=== PATIENT | female | born 1965 | race Caucasian/White ===

== ENCOUNTER → 2019-02-12 | Outpatient (CLI) | payer OTHER ==
[~2019-02-12] MED LIST: IBUP80TA PO; PERCOCET PO; RANI1TAB6 PO; iron OR
--- NOTE | 2019-02-12 13:20 | REP ---
REASON: Hip and back pain. COMPARISON: None. FINDINGS: The hip joint space is symmetric and relatively well maintained. T here is no acute or destructive osseous lesion. Electronically Signed by Gunnar Moore DO 02/12/2019 03:25 P
--- NOTE | 2019-02-12 13:50 | REP ---
REASON: Low back pain with right lower extremity radicular symptoms. COMPARISON: None. There is incidental L5 spina bifida occulta. The pedicles are intact bilaterally. Vertebral body height and alignment is within normal limits. There is posterior disc space narrowing at every level. There is minimal anterior lipping seen at L3-4. IMPRESSION: Chronic changes as described above. Electronically Signed by Gunnar Moore DO 02/12/2019 03:26 P
== END ==
LOC: M LRY 12:16
PROVIDERS: ATTEND Physician Assistant
DX: Q05.7 Lumbar spina bifida without hydrocephalus (principal); M48.07 Spinal stenosis, lumbosacral region; M54.5 Low back pain

== ENCOUNTER → 2019-06-18 | Outpatient (CLI) | payer OTHER ==
[~2019-06-18] MED LIST changes: +RANI-356 PO; -RANI1TAB6 PO
--- NOTE | 2019-06-18 15:40 | REPMRS ---
Patient History The patient states she has not had a clinical breast exam in over a year. Patient is postmenopausal. No known family history of cancer. Reductions of both breasts, 2002. Took hormonal contraceptives for 18 years. The [facility] lifetime risk for breast cancer is 7.2%. Digital Woman Screen Mammo: June 18, 2019 - Exam #: [id number] Bilateral CC and MLO view(s) were taken. Technologist: Jasmyn Bartholomew, Technologist Prior study comparison: November 10, 2015, digital bilateral screening mammo, performed at [facility]. 2009, digital bilateral screening mammo performed at [facility]. FINDINGS: There are scattered fibroglandular densities. There has been no change in the appearance of the mammogram from the prior studies. There is a mild amount of residual fibroglandular tissue which is fairly symmetric. There is no interval development of dominant mass, architectural distortion, or clustered microcalcification suggestive of malignancy. Assessment: BI-RADS/ACR category 1 mammogram. Negative Mammogram. Recommendation Routine screening mammogram in 1 year (for women over age 40). This mammogram was interpreted with the aid of an FDA-approved computer-aided dectection system. Electronically Signed By: Hank Munguia MD 06/18/19 [id number]
== END ==
LOC: M WHC 14:31
PROVIDERS: ATTEND Family Medicine
DX: Z12.31 Encounter for screening mammogram for malignant neoplasm of breast (principal); Z78.0 Asymptomatic menopausal state; Z92.0 Personal history of contraception

== ENCOUNTER → 2019-12-16 | Outpatient (CLI) | payer OTHER ==
[~2019-12-16] MED LIST changes: +GASTROGRAFIN SOLUTION 30ML (Q9963) As Ordered ONE; +ISOVUE-370 76% 100ML VIAL (Q9967) As Ordered ONE; -RANI-356 PO; +RANI-397 PO
--- NOTE | 2019-12-16 15:54 | REP ---
CT of the abdomen and pelvis with IV and bowel contrast for abdominal pain radiating from the umbilicus to the right lower quadrant. No fever, chills, nausea, vomiting, hematuria or anorexia. There are no comparison studies. The visualized lung carter are unremarkable. The hepatic parenchyma is homogeneous but diffusely less dense than the spleen suggestive of hepato steatosis. There are no hepatic masses. The gallbladder surgically absent. The pancreas and spleen are normal size, homogeneous and unremarkable. The adrenals are unremarkable. There are no renal masses or cysts. There is no hydronephrosis. No renal calculi are identified. There is no perinephric stranding. The kidneys are unremarkable. The abdominal aorta is unremarkable. There is no periaortic adenopathy or mass. There is no bowel distension or obstruction. There is no ascites. Pelvis: The appendix cannot be identified as a distinct structure. It is in by superimposed bowel loops. However, there is no pericecal inflammation or abscess. The terminal ileum is unremarkable. The bladder is unremarkable. There is a hysterectomy. Vaginal cuff and adnexa are unremarkable. There is no ascites. There is no pelvic adenopathy. The pelvic bowel loops demonstrate occasional diverticula in the distal descending colon and sigmoid colon, however, there is no CT evidence of diverticulitis. There is an unusual soft tissue nodular density measuring 17 mm just lateral to the left quadratus lumborum on image 76 of uncertain significance. This could represent a congenital muscular artifact. There is no associated edema or inflammation. There is no concomitant finding on the right. As a precaution, I would recommend follow-up CT in this area approximately 3-6 months unless the patient has prior studies performed elsewhere that could be obtained for comparison. Diagnostic considerations at this time. Heart congenital variant versus unusual neoplasm. Impression: Hepato steatosis. The appendix cannot be identified as a distinct structure, however, there is no pericecal inflammation or abscess. The terminal ileum has an unremarkable appearance by CT. The bowel and mesentery are otherwise unremarkable. There is no ascites or adenopathy. No bowel distension or obstruction. No CT evidence of colitis. Unusual soft tissue nodular density in the left retroperitoneum lateral to the left quadratus lumborum muscle measuring 17 mm as described in detail above. This could be a congenital variant versus neoplasm. I would recommend follow-up CT with attention to this area in approximately 3-6 months. If more immediate imaging as deemed clinically indicated I would recommend MRI. Electronically Signed by Hank Owens MD 12/16/2019 03:45 P
== END ==
LOC: M RAD 12:25
PROVIDERS: ATTEND Family Medicine
DX: R10.31 Right lower quadrant pain (principal)
CPT/HCPCS: 74177; Q9963; Q9967

== ENCOUNTER → 2020-03-12 | Outpatient (CLI) | payer OTHER ==
[~2020-03-12] MED LIST changes: -GASTROGRAFIN SOLUTION 30ML (Q9963) As Ordered ONE; -ISOVUE-370 76% 100ML VIAL (Q9967) As Ordered ONE; +PROHANCE 279.3MG/ML 15ML VIAL As Ordered ONE; +PROHANCE 279.3MG/ML 5ML VIAL As Ordered ONE
--- NOTE | 2020-03-12 18:20 | REPVR ---
PROCEDURE INFORMATION: Exam: MR Abdomen Without and With Contrast Exam date and time: 03/12/2020 5:24 PM Age: 54 years old Clinical indication: Abnormal findings; Mass, lump, or swelling; Abdomen; Luq; Patient HX: Small mass seen on CT left posterior abdominal wall at level of kidney; Additional info: Incidenital lesion of left retroperitoneal TECHNIQUE: Imaging protocol: MR of the abdomen without and with intravenous contrast. Contrast material: PROHANCE; Contrast volume: 20 ml; Contrast route: IV; COMPARISON: No relevant prior studies available. FINDINGS: Liver: There is hepatic steatosis. No focal hepatic lesion. Gallbladder and bile ducts: Status post cholecystectomy. Bile ducts are not dilated. Pancreas: The pancreas is normal. Incompletely visualized. Spleen: The spleen is normal. Adrenals: The adrenal glands are normal. Incompletely visualized. Kidneys and ureters: The kidneys are normal.No hydronephrosis. Stomach and bowel: Visualized stomach and intestines are unremarkable. Intraperitoneal space: No free fluid. Arteries: No abdominal aortic aneurysm. Reproductive: There is a mass to the left of the quadratus lumborum. This is hyperintense on T2 weighted images as seen on series 501, frame 0 11. It is isointense on T1 weighted images. There is homogeneous extensive enhancement of this mass. It measures 17 by 12 by 16 mm. Bones/joints: See "Reproductive" finding. Soft tissues: See "Reproductive" finding. IMPRESSION: 17 x 12 x 16 mm mass in the retroperitoneum on the left. It enhances on postcontrast images. The appearance is nonspecific. This could represent a fibroma. Malignancies such as sarcoma cannot be excluded. This lesion is stable in size compared to the prior scan. Stability in size favors a benign lesion. Consider PET scan or continued short-term follow-up in 3 months. Electronically signed by: Stanley Tobias On 03/12/2020 18:20:01 PM
== END ==
LOC: M RAD 16:25
PROVIDERS: ATTEND Family Medicine
DX: R10.30 Lower abdominal pain, unspecified (principal); K76.0 Fatty (change of) liver, not elsewhere classified; Z90.49 Acquired absence of other specified parts of digestive tract; R93.5 Abnormal findings on diagnostic imaging of other abdominal regions, including retroperitoneum
CPT/HCPCS: 74183; A9576

== ENCOUNTER → 2021-10-17 | Outpatient (CLI) | payer OTHER ==
[~2021-10-17] MED LIST changes: -PROHANCE 279.3MG/ML 15ML VIAL As Ordered ONE; -PROHANCE 279.3MG/ML 5ML VIAL As Ordered ONE
[2021-10-17 16:01] LABS: CREATININE, URINE 87.2 MG/DL; MALB URINE SIEMENS 9.4 MG/L; MAU/CREAT RATIO 10.7 MCG/MG (0.0-30.0)
[2021-10-17 16:05] LABS: CHOLESTEROL RISK RATIO 5.288 (<5); FREE T4 0.87 NG/DL (0.76-1.46); THYROID STIMULATING HORMONE 1.91 uIU/ML (0.358-3.740)
== END ==
LOC: M PLALAB 13:56
PROVIDERS: ATTEND Nurse Practitioner Family
DX: I10 Essential (primary) hypertension (principal)

== ENCOUNTER → 2022-05-16 | Outpatient (CLI) | payer OTHER | LOC: M WHC 13:17 | PROVIDERS: ATTEND Student in an Organized Health Care Education/Training Program | DX: N63.12 Unspecified lump in the right breast, upper inner quadrant (principal) | CPT/HCPCS: 76642; 77065; G0279 ==

== ENCOUNTER → 2022-11-02 | Outpatient (CLI) | payer OTHER | LOC: M SOG 08:05 | PROVIDERS: ATTEND Orthopaedic Surgery | DX: M25.562 Pain in left knee (principal) ==

== ENCOUNTER → 2022-11-20 | Outpatient (CLI) | payer OTHER ==
[2022-11-20 10:14] LABS: BASO # 0.1 10^3/uL (0.0-0.2); BASO % 0.9 % (0.0-1.0); EOS # 0.2 10^3/uL (0.0-0.5); EOS % 2.7 % (0.0-3.0); HEMATOCRIT 39.1 % (36.0-47.0); HEMOGLOBIN 12.6 g/dl (12.0-15.5); LYMPH # 2.8 10^3/uL (1.5-5.0); LYMPH % 39.6 % (24.0-44.0); MEAN CORPUSCULAR HGB CONC 32.2 g/dl (32.0-36.5); MEAN CORPUSCULAR VOLUME 93.1 fl (80.0-96.0); MONO # 0.4 10^3/uL (0.0-0.8); MONO % 5.7 % (2.0-8.0); NEUTROPHILS # 3.6 10^3/uL (1.5-8.5); NEUTROPHILS % 50.7 % (36.0-66.0); PLATELET COUNT, AUTOMATED 242 10^3/uL (150-450)
[2022-11-20 10:45] LABS: ALBUMIN 3.9 G/DL (3.2-5.2); ALKALINE PHOSPHATASE 53 U/L (46-116); ALT/SGPT 31 U/L (7.0-40); AST/SGOT < 8 U/L (<34); BILIRUBIN,TOTAL 0.3 MG/DL (0.3-1.2); BLOOD UREA NITROGEN 16 MG/DL (9-23); CARBON DIOXIDE LEVEL 26 MMOL/L (20-31); CHLORIDE LEVEL 112 MMOL/L (98-107); CHOLESTEROL LEVEL 211 MG/DL (<200); CHOLESTEROL RISK RATIO 4.27 (<5); CREATININE FOR GFR 0.54 MG/DL (0.55-1.30); GLOMERULAR FILTRATION RATE > 60.0 (>51); GLUCOSE, FASTING 102 MG/DL (60-100); HDL CHOLESTEROL 49.3 MG/DL (>40); LDL CHOLESTEROL 125.1 MG/DL (<100); NON-HDL-C 162 MG/DL; POTASSIUM SERUM 4.7 MMOL/L (3.5-5.1); SODIUM LEVEL 141 MMOL/L (136-145); TOTAL PROTEIN 6.7 G/DL (5.7-8.2); TRIGLYCERIDES LEVEL 183 MG/DL (<150)
[2022-11-20 10:46] LABS: THYROID STIMULATING HORMONE 2.675 uIU/ML (0.55-4.78)
[2022-11-20 10:47] LABS: FREE T4 0.99 NG/DL (0.89-1.76)
== END ==
LOC: M WUC 08:25
PROVIDERS: ATTEND Student in an Organized Health Care Education/Training Program
DX: Z00.00 Encounter for general adult medical examination without abnormal findings (principal)

== ENCOUNTER → 2023-11-26 | Outpatient (CLI) | payer OTHER ==
[2023-11-26 16:25] LABS: BASO # 0.1 10^3/uL (0.0-0.2); BASO % 0.6 % (0.0-1.0); EOS # 0.1 10^3/uL (0.0-0.5); EOS % 1.2 % (0.0-3.0); HEMATOCRIT 38.9 % (36.0-47.0); HEMOGLOBIN 13.1 g/dl (12.0-15.5); LYMPH % 39.6 % (24.0-44.0); MEAN CORPUSCULAR HEMOGLOBIN 30.4 pg (27.0-33.0); MEAN CORPUSCULAR HGB CONC 33.7 g/dl (32.0-36.5); MEAN CORPUSCULAR VOLUME 90.3 fl (80.0-96.0); MONO # 0.4 10^3/uL (0.0-0.8); MONO % 4.3 % (2.0-8.0); NEUTROPHILS # 5.5 10^3/uL (1.5-8.5); NEUTROPHILS % 53.9 % (36.0-66.0); PLATELET COUNT, AUTOMATED 298 10^3/uL (150-450); RED BLOOD COUNT 4.31 10^6/uL (4.00-5.40); WHITE BLOOD COUNT 10.1 10^3/uL (4.0-10.0)
[2023-11-26 16:34] LABS: INR 0.96; PROTHROMBIN TIME 12.5 SECONDS (12.5-14.5)
[2023-11-26 16:38] LABS: ALBUMIN 4.1 G/DL (3.2-5.2); ALKALINE PHOSPHATASE 50 U/L (46-116); ALT/SGPT 43 U/L (7.0-40); AST/SGOT 16 U/L (<34); BILIRUBIN,TOTAL 0.2 MG/DL (0.3-1.2); BLOOD UREA NITROGEN 17 MG/DL (9-23); CALCIUM LEVEL 9.7 MG/DL (8.5-10.1); CARBON DIOXIDE LEVEL 28 MMOL/L (20-31); CHLORIDE LEVEL 105 MMOL/L (98-107); CREATININE FOR GFR 0.73 MG/DL (0.55-1.30); GLOMERULAR FILTRATION RATE > 60.0 (>51); GLUCOSE, FASTING 96 MG/DL (60-100); IRON (FE) 94 UG/DL (50-170); PERCENT SATURATION 28.7 % (13.2-45.0); SODIUM LEVEL 140 MMOL/L (136-145); TOTAL IRON BINDING CAPACITY 328 UG/DL (250-425); TOTAL PROTEIN 7.3 G/DL (5.7-8.2)
== END ==
LOC: M WUC 14:21
PROVIDERS: ATTEND Orthopaedic Surgery
DX: Z01.818 Encounter for other preprocedural examination (principal); M25.562 Pain in left knee; M17.12 Unilateral primary osteoarthritis, left knee

== ENCOUNTER → 2023-12-25 | Outpatient (REF) | payer OTHER ==
[2023-12-25 12:12] LABS: BASO # 0.1 10^3/uL (0.0-0.2); BASO % 0.8 % (0.0-1.0); EOS # 0.1 10^3/uL (0.0-0.5); EOS % 1.6 % (0.0-3.0); HEMATOCRIT 39.2 % (36.0-47.0); HEMOGLOBIN 12.9 g/dl (12.0-15.5); LYMPH # 2.7 10^3/uL (1.5-5.0); LYMPH % 36.3 % (24.0-44.0); MEAN CORPUSCULAR HEMOGLOBIN 30.8 pg (27.0-33.0); MEAN CORPUSCULAR HGB CONC 32.9 g/dl (32.0-36.5); MEAN CORPUSCULAR VOLUME 93.6 fl (80.0-96.0); MONO # 0.4 10^3/uL (0.0-0.8); MONO % 5.2 % (2.0-8.0); NEUTROPHILS # 4.1 10^3/uL (1.5-8.5); NEUTROPHILS % 55.8 % (36.0-66.0); PLATELET COUNT, AUTOMATED 272 10^3/uL (150-450); RED BLOOD COUNT 4.19 10^6/uL (4.00-5.40); WHITE BLOOD COUNT 7.4 10^3/uL (4.0-10.0)
[2023-12-25 12:37] LABS: FREE T4 1.11 NG/DL (0.89-1.76)
[2023-12-25 12:38] LABS: ALBUMIN 4.2 G/DL (3.2-5.2); ALKALINE PHOSPHATASE 47 U/L (46-116); ALT/SGPT 64 U/L (7.0-40); AST/SGOT 23 U/L (<34); BILIRUBIN,TOTAL 0.4 MG/DL (0.3-1.2); BLOOD UREA NITROGEN 11 MG/DL (9-23); CALCIUM LEVEL 9.3 MG/DL (8.5-10.1); CARBON DIOXIDE LEVEL 31 MMOL/L (20-31); CHLORIDE LEVEL 107 MMOL/L (98-107); CHOLESTEROL LEVEL 221 MG/DL (<200); CHOLESTEROL RISK RATIO 5.06 (<5); CREATININE FOR GFR 0.47 MG/DL (0.55-1.30); GLOMERULAR FILTRATION RATE > 60.0 (>51); GLUCOSE, FASTING 100 MG/DL (60-100); HDL CHOLESTEROL 43.6 MG/DL (>40); LDL CHOLESTEROL 139.4 MG/DL (<100); NON-HDL-C 177.4 MG/DL; POTASSIUM SERUM 4.4 MMOL/L (3.5-5.1); SODIUM LEVEL 141 MMOL/L (136-145); TOTAL 25(OH) VITAMIN D 6.5 NG/ML (20.0-100.0); TOTAL PROTEIN 7.3 G/DL (5.7-8.2); TRIGLYCERIDES LEVEL 190 MG/DL (<150)
== END ==
LOC: M LABWUC 11:33
PROVIDERS: ATTEND Physician Assistant
DX: Z00.00 Encounter for general adult medical examination without abnormal findings (principal); I10 Essential (primary) hypertension

== ENCOUNTER → 2024-05-05 | Outpatient (CLI) | payer OTHER | LOC: M WHC 10:34 | PROVIDERS: ATTEND Physician Assistant | DX: Z12.31 Encounter for screening mammogram for malignant neoplasm of breast (principal) ==

== ENCOUNTER 2024-08-16 07:58 | Emergency (ER) | payer OTHER ==
[2024-08-16] MEDS ORDERED: LISI10TA22 (08:07)
[2024-08-16 08:55] LABS: BASO % 0.3 % (0.0-1.0); EOS # 0.1 10^3/uL (0.0-0.5); EOS % 0.8 % (0.0-3.0); HEMATOCRIT 40.4 % (36.0-47.0); HEMOGLOBIN 13.2 g/dl (12.0-15.5); LYMPH # 1.8 10^3/uL (1.5-5.0); MEAN CORPUSCULAR HGB CONC 32.7 g/dl (32.0-36.5); MEAN CORPUSCULAR VOLUME 91.8 fl (80.0-96.0); MONO # 0.7 10^3/uL (0.0-0.8); MONO % 5.4 % (2.0-8.0); NEUTROPHILS # 10.2 10^3/uL (1.5-8.5); NEUTROPHILS % 79.1 % (36.0-66.0); PLATELET COUNT, AUTOMATED 249 10^3/uL (150-450); WHITE BLOOD COUNT 12.9 10^3/uL (4.0-10.0)
[2024-08-16 09:17] LABS: ALBUMIN 4.2 G/DL (3.2-5.2); BILIRUBIN,DIRECT 0.2 MG/DL (<0.4); BILIRUBIN,TOTAL 0.6 MG/DL (0.3-1.2); TOTAL PROTEIN 7.6 G/DL (5.7-8.2)
[2024-08-16] MEDS: KETOROLAC 30 MG/ML 1ML VIAL IV ONE (09:29)
[2024-08-16] MEDS ORDERED: ISOVUE-370 76% 100ML VIAL As Ordered ONE (09:33)
[2024-08-16 10:11] VITALS: TEMP 98.3
[2024-08-16 13:01] VITALS: BP 141/80; O2SAT 98
[2024-08-16] MEDS: CIPROFLOXACIN 500MG TABLET PO ONE (13:04)
[2024-08-16] MEDS: metroNIDAZOLE (FLAGYL) 500MG TABLET PO ONE (13:05)
[2024-08-16] MEDS ORDERED: METR-265 PO (13:10)
[2024-08-16] MEDS ORDERED: CIPR-249 PO (13:10)
== END 2024-08-16 13:31 | disposition home or self-care (01) ==
LOC: M ED 07:58
DX: K57.30 Diverticulosis of large intestine without perforation or abscess without bleeding (principal); R19.04 Left lower quadrant abdominal swelling, mass and lump; K42.9 Umbilical hernia without obstruction or gangrene; I70.0 Atherosclerosis of aorta; I10 Essential (primary) hypertension; K76.0 Fatty (change of) liver, not elsewhere classified; Z90.49 Acquired absence of other specified parts of digestive tract; Z79.811 Long term (current) use of aromatase inhibitors; Z79.2 Long term (current) use of antibiotics; Z79.899 Other long term (current) drug therapy
CPT/HCPCS: 74177; 80047; 80076; 83690; 85025; 96374; 99284; J1885; Q9967

== ENCOUNTER 2024-11-19 09:01 | Day surgery (SDC) | payer OTHER ==
[~2024-11-19] VITALS: Ht 167.6 cm; Wt 99.3 kg
[~2024-11-19 09:01] MED LIST changes: +CIPR-249 PO; +ERGO500029 PO; +LISI10TA22 PO; +METR-265 PO
[2024-11-19] MEDS ORDERED: propofoL 200 MG/20 ML VIAL As Ordered ONE (09:33)
[2024-11-19] MEDS ORDERED: LIDOCAINE 2% 100MG/5ML SDV (FOR ANES.) As Ordered ONE (09:33)
[2024-11-19 10:54] VITALS: TEMP 97
[2024-11-19 11:11] VITALS: BP 167/87; O2SAT 96
== END 2024-11-19 11:16 | disposition home or self-care (01) ==
LOC: M OPP 09:01
PROVIDERS: ATTEND Surgery
DX: K57.30 Diverticulosis of large intestine without perforation or abscess without bleeding (principal); K64.0 First degree hemorrhoids; Z79.899 Other long term (current) drug therapy

== ENCOUNTER → 2025-04-09 | Outpatient (CLI) | payer OTHER ==
[2025-04-09 14:52] LABS: BASO # 0.0 10^3/uL (0.0-0.2); BASO % 0.7 % (0.0-1.0); EOS # 0.2 10^3/uL (0.0-0.5); EOS % 2.6 % (0.0-3.0); LYMPH # 1.8 10^3/uL (1.5-5.0); LYMPH % 31.0 % (24.0-44.0); MONO # 0.3 10^3/uL (0.0-0.8); MONO % 5.8 % (2.0-8.0); NEUTROPHILS # 3.5 10^3/uL (1.5-8.5); NEUTROPHILS % 59.7 % (36.0-66.0); PLATELET COUNT, AUTOMATED 245 10^3/uL (150-450)
[2025-04-09 15:00] LABS: TOTAL 25(OH) VITAMIN D 35.5 NG/ML (20.0-100.0)
[2025-04-09 15:01] LABS: ALT/SGPT 35 U/L (7.0-40); AST/SGOT 20 U/L (<34); CALCIUM LEVEL 9.3 MG/DL (8.5-10.1); CARBON DIOXIDE LEVEL 23 MMOL/L (20-31); CHLORIDE LEVEL 107 MMOL/L (98-107); CHOLESTEROL LEVEL 219 MG/DL (<200); CHOLESTEROL RISK RATIO 4.91 (<5); CREATININE FOR GFR 0.58 MG/DL (0.55-1.30); GLOMERULAR FILTRATION RATE > 90.0 (>51); IRON (FE) 108 UG/DL (50-170); LDL CHOLESTEROL 141.6 MG/DL (<100); NON-HDL-C 174.4 MG/DL; PERCENT SATURATION 32.8 % (13.2-45.0); POTASSIUM SERUM 4.4 MMOL/L (3.5-5.1); SODIUM LEVEL 143 MMOL/L (136-145); TRIGLYCERIDES LEVEL 164 MG/DL (<150)
[2025-04-09 15:15] LABS: ESTIMATED AVERAGE GLUCOSE 105.0 MG/DL (60-110)
== END ==
LOC: M WUC 09:37
PROVIDERS: ATTEND Student in an Organized Health Care Education/Training Program
DX: Z00.00 Encounter for general adult medical examination without abnormal findings (principal)

== ENCOUNTER → 2025-05-06 | Outpatient (CLI) | payer OTHER | LOC: M WHC 10:43 | PROVIDERS: ATTEND Student in an Organized Health Care Education/Training Program | DX: Z12.31 Encounter for screening mammogram for malignant neoplasm of breast (principal); R92.313 Mammographic fatty tissue density, bilateral breasts ==

== ENCOUNTER → 2025-05-26 | Outpatient (CLI) | payer OTHER ==
[~2025-05-26] MED LIST changes: +PROHANCE 279.3MG/ML 15ML VIAL As Ordered ONE; +PROHANCE 279.3MG/ML 5ML VIAL As Ordered ONE
== END ==
LOC: M RAD 08:19
PROVIDERS: ATTEND Student in an Organized Health Care Education/Training Program
DX: H93.12 Tinnitus, left ear (principal); I65.23 Occlusion and stenosis of bilateral carotid arteries
CPT/HCPCS: 70544; 70549; A9576

== ENCOUNTER → 2025-06-11 | Outpatient (REF) | payer OTHER ==
[~2025-06-11] MED LIST changes: -PROHANCE 279.3MG/ML 15ML VIAL As Ordered ONE; -PROHANCE 279.3MG/ML 5ML VIAL As Ordered ONE
== END ==
LOC: M SFHCDERM 13:15
PROVIDERS: ATTEND Physician Assistant
DX: D49.2 Neoplasm of unspecified behavior of bone, soft tissue, and skin (principal)